=== PATIENT | male | born 1985 | race Caucasian/White ===

== ENCOUNTER 2021-06-15 11:03 | Emergency (ER) | payer SELFPAY ==
[2021-06-15 11:09] VITALS: BP 122/65; PULSE 80; RESP 15; TEMP 36.9; O2SAT 97; BMI 24.3
--- NOTE | 2021-06-15 11:26 | CT_ITS ---
WS: [id number] CT HEAD NONCONTRAST HISTORY: Evaluate for pathology. No additional history provided. TECHNIQUE: Contiguous axial imaging performed through the brain in 2.5 mm imaging. Bone and soft tiss ue windows. Sagittal and coronal reformats reviewed. All CT scans at [facility] use at least one of these dose optimization techniques: automated exposure control; mA and/or kV adjustment per pa tient size (includes targeted exams where dose is matched to clinical indication); or iterative recon struction. DLP: 834.13 mGy.cm COMPARISON: None available. No acute intracranial hemorrhage, midline shift or mass effect. No atrophy or prior infarcts or herniation. Ventricles: Normal size with no hydrocephalus. Paranasal sinuses: As visualized are clear. Mastoid air cells: Well pneumatized. Calvarium and scalp: Skull is intact with no soft tissue edema or swelling. CT/CT head wo con* [id number] IMPRESSION: Negative head CT.
--- NOTE | 2021-06-15 11:27 | ECG_ITS ---
[facility] Test Date: 2021-06-15 Pat Name: Ryan Reyez Department: Room: Gender: Male [employer] Operator: : 1985 Requested By: Liya Mei Order Number: [id number] Collado MD: Roxann Villanueva M.D. Measurements Intervals [place] Rate: 65 P: 68 TX: 156 QRS: 32 QRSD: 96 T: 38 QT: 397 QTc: 416 Interpretive Statements SINUS RHYTHM No previous ECG available for comparison Electronically Signed On 06-15-2021 13:22:03 SIDER by Roxann Villanueva M.D. [id number]
--- NOTE | 2021-06-15 11:34 | W.ED.GENADLT ---
HPI - General Adult General: Chief complaint: Headache Stated complaint: BLACKED OUT, HEADACHE Time Seen by Provider: 06/15/21 11:07 History of Present Illness: Patient is a 36-year-old male with a prior history of headaches currently incarcerated presenting to the emergency room with acute of headache x 3 days setting of nasal congestion, generalized weakness, silver taste in mouth, and body ache. Patient has had a headache is gradually gotten worse. It has not gotten better. Patient denies any fever or chills. Denies any cough, runny nose or sore throat. Patient has no abdominal complaints including diarrhea, melena hematochezia. Patient denies any nausea or vomiting. No other sick contacts around patient. Patient denies any chest pain, shortness of breath or palpitation. Onset: 3 days ago Duration:3 days Location:home Severity:moderate Associated symptoms: Reports malaise; Deny chest pain, dyspnea, nausea, rash, palpitations or vomiting Review of Systems Const: Reports: body aches, malaise and other (generalized weakness); Denies: fever(s) or chills Eyes: Denies: change in vision ENMT: Reports: other (nasal congestion); Denies: mouth pain Card: Denies: chest pain or palpitations Resp: Denies: dyspnea or non-productive cough GI: Denies: abdominal pain, nausea, vomiting or diarrhea : Denies: dysuria Musc: Denies: extremity pain Skin/Breast: Denies: rash or new lesions Neuro: Reports: other (+headache); Denies: weakness in extremities Psych: Reports: other (Normal mood) Dxeter/Lymph: Denies: easy bruising [facility] ED PFSH: Medical History Headache Social History Alcohol intake: former Substance/Drug Use: former Physical Exam Const: COMMON NORMALS: alert HENMT: COMMON NORMALS: atraumatic HEAD & SCALP: atraumatic MOUTH: moist mucous membranes not abnormal Eye: COMMON NORMALS: EOMs intact bilaterally and conjunctivae normal CONJUNCTIVA: Yes conjunctivae normal Neck/C-Spine: COMMON NORMALS: full ROM and supple OTHER: no nuchal rigidity Resp: COMMON NORMALS: normal respiratory effort and clear to auscultation bilaterally AUSCULTATION: clear to auscultation bilaterally Cardio: COMMON NORMALS: regular rate RATE: regular rate GI: COMMON NORMALS: Soft to palpation and non-tender PALPATION: Yes Soft to palpation Extremity: COMMON NORMALS: full ROM Neuro: SENSORIUM/ORIENTATION: Yes alert MOTOR EXAM: No Abnormal motor strength present and Other motor observations present (no focal motor deficits) OTHER: Mental status? Awake, alert, and oriented to self, year, month, location, and situation.? Following simple axial and appendicular commands.? Has appropriate fund of knowledge, comprehension, and insight.? Able to recall and understands pertinent aspects of medical history and current treatment status.? ? Language? Speech is fluent without word-finding difficulties.? Intact naming, expression, electrician control equipment, and repetition.? ? Cranial nerves? 2,3,4,6: PERRL, EOMI with no nystagmus. 5: Intact sensation to light touch, symmetric? 7: Smile symmetrical, no facial droop.? 8: Hearing grossly intact.? 9,10: Normal palate movement.? 11: Normal strength in trapezius bilaterally 12: Tongue protrudes midline.? ? Motor examination? Normal bulk & tone. Strength as follows (R/L): Delts (5/5), Biceps (5/5), Triceps (5/5), Wrist ext (5/5), hip flexors (5/5), plantarflexors (5/5), dorsiflexors (5/5). Sensation? Light Touch: Grossly intact and equal in upper and lower extremities bilaterally? Romberg: Negative.? Distal joint position sense intact ? Coordination? Xrocdl-hx-zewz-finger movements intact without dysmetria or past-pointing.? Rapid fingertaps: preserved amplitude without decriment.? No tremor, myoclonus or truncal ataxia.? ? Gait/stance? Steady, normal narrow base gait with appropriate arm swing and turning.? Tandem gait without hesitation or loss of balance. Psych: COMMON NORMALS: speech normal SPEECH: Yes normal speech MOOD & AFFECT: Yes euthymic mood Course Vital Signs: Vital signs: Vital Signs Temperature 98.4 F 06/15/21 11:09 Pulse Rate 80 06/15/21 11:09 Respiratory Rate 15 06/15/21 11:09 Blood Pressure 122/65 06/15/21 11:09 Pulse Oximetry 97 06/15/21 11:09 [facility] - General Adult Medical Decision Making Patient is a 36-year-old male with a prior history of headache presenting to emergency room bifrontal headache x3 days in the setting of nasal congestion metallic taste in mouth and generalized weakness diffusely. Patient on exam is afebrile, no nuchal rigidity. No petechiae. Patient is neurologically intact. Given that the patient is currently incarcerated, decision was made to order CT scan to evaluate for acute pathologies. Patient is negative for any mass or brain bleed or trauma. At the present time, I doubt that this is subarachnoid bleed given the fact the patient has not had worse headache of his life, headaches associate with other symptoms, has no family history of aneurysm. Medication, patient's headache significantly improved, pain patient reports that currently he does not have any headache. I have given patient follow up with our transplant case manager to be seen by our primary care clinic if there is persistent headache. Patient aware of a call from our transplant case manager to schedule for appointment(s) and verbalizes understanding of the importance of following up. Rx: Magnesium oxide, Tylenol, Reglan as needed for headache Disposition: Discharge. Patient counseled regarding diagnostic impression, treatment plan. Patient given ED strict return precautions to return for continuation, worsening, or development of new symptoms. Instructed to f/u w/ PCP regarding symptoms today. Patient verbalized understanding. Lab Data Radiology Impressions Head CT 06/15/21 11:26 IMPRESSION: Negative head CT. Imaging Data Other Imaging: Radiologist's impression: Launch?Image [facility] [address] [facility] [place] [address] CT Scan Report Signed Patient: Ryan Reyez Unit #: [id number] : 1985 Age/Sex: 36 / M ADM Date: 06/15/21 Loc: ER Room/Bed: Attending Dr: Ordering Provider/Ordering MD: Liya Mei MD Date of Service: 06/15/21 Procedure(s): CT head wo con* [id number] Accession Number(s): [id number] Report Number: [id number] WS: [id number] CT HEAD NONCONTRAST HISTORY: Evaluate for pathology. No additional history provided. TECHNIQUE: Contiguous axial imaging performed through the brain in 2.5 mm imaging. Bone and soft tissue windows. Sagittal and coronal reformats reviewed.? All CT scans at [facility] use at least one of these dose optimization techniques: automated exposure control; mA and/or kV adjustment per patient size (includes targeted exams where dose is matched to clinical indication); or iterative reconstruction. DLP: 834.13 mGy.cm COMPARISON: None available. No acute intracranial hemorrhage, midline shift or mass effect. No atrophy or prior infarcts or herniation. Ventricles:? Normal size with no hydrocephalus. Paranasal sinuses: As visualized are clear. Mastoid air cells: Well pneumatized. Calvarium and scalp: Skull is intact with no soft tissue edema or swelling. CT/CT head wo con* [id number] IMPRESSION: ? Negative head CT. ? Dictated By: Debbie Rodrigues DO Signed By: Debbie Rodrigues DO Signed Date/Time: 06/15/21 1224 DD/ 1221 Discharge Plan Discharge Patient Disposition: Home Clinical Impression: Headache, Generalized body aches, Congestion of nasal sinus Condition: Stable Prescriptions: New acetaminophen 500 mg tablet 500 mg PO Q6H PRN (Reason: pain) 5 Days Qty: 20 0RF prednisone 50 mg tablet 50 mg PO DAILY 3 Days 0RF magnesium oxide 500 mg capsule 500 mg PO DAILY PRN (Reason: headache) 10 Days Qty: 10 0RF Reglan 5 mg tablet 5 mg PO DAILY PRN (Reason: headache) 5 Days Qty: 5 0RF Discharge Orders: Discharge ED (Routine); Ordered 06/15/21 Ordered By: Liya Mei Discharge Diet: Advance as tolerated Discharge Activity: Increase activity as tolerated Patient Instructions: Acute Headache (ED), Weakness (Generalized) Activity Restrictions/Additional Instructions: Please come back to the emergency room you have any fever chills, worsening headache, focal weakness, nausea/vomiting, inability to perform daily activity, or any new concerning complaints. Coding Level of Care Code ED Sulfuric Acid Plant Supervisor for Alberto Fwd Exam Comprehensive
[2021-06-15] MEDS: magnesium sulfate premix 2 GM/50 ML PIGGYBACK IV (11:39)
[2021-06-15] MEDS: sodium chloride 0.9% 1,000 ML 999 ML IV (11:43)
[2021-06-15] MEDS: metoclopramide 5 mg/mL SDV 2 mL IVP (11:43)
[2021-06-15] MEDS: diphenhydrAMINE 50 mg/mL SDV 1mL IVP (11:44)
[2021-06-15] MEDS: acetaminophen 500 mg Tablet 1000 MG PO (11:54)
[2021-06-15 13:07] VITALS: BP 122/65; PULSE 98; RESP 16; O2SAT 99
[2021-06-15 15:20] LABS: Adenovirus Not Detected (NOT DETECT); Chlamydia Pneumoniae Not Detected (NOT DETECT); Coronavirus 229E,HKU1,NL63,OC4 Not Detected (NOT DETECT); Human Metapneumovirus Not Detected (NOT DETECT); Human Rhinovirus/Enterovirus Not Detected (NOT DETECT); Influenza A Not Detected (NOT DETECT); Influenza A H1 Not Detected (NOT DETECT); Influenza A H1-2009 Not Detected (NOT DETECT); Influenza A H3 Not Detected (NOT DETECT); Influenza B Not Detected (NOT DETECT); Mycoplasma Pneumoniae Not Detected (NOT DETECT); Parainfluenza Virus Type 1 Not Detected (NOT DETECT); Parainfluenza Virus Type 2 Not Detected (NOT DETECT); Parainfluenza Virus Type 3 Not Detected (NOT DETECT); Parainfluenza Virus Type 4 Not Detected (NOT DETECT); Respiratory Syncytial Virus A Not Detected (NOT DETECT); Respiratory Syncytial Virus B Not Detected (NOT DETECT); SARS-COV-2 Detected (NOT DETECT)
--- NOTE | 2021-06-15 17:16 | PC.NURSE ---
left voicemail for pt to return call for lab results (covid)
--- NOTE | 2021-06-16 09:42 | DCPLANNER ---
mechanical manager had message to speak with patient about getting a primary care physician. mechanical manager called phone number [phone], unable to speak with patient at this time, unable to leave a voicemail for patient.
== END 2021-06-15 13:10 | disposition home or self-care (01) ==
PROVIDERS: Emergency Provider Emergency Medicine
DX: U07.1 COVID-19 (principal); R51.9 Headache, unspecified
CPT/HCPCS: 70450; 87635; 93005; 96365; 96375; 99284; J1200; J2765; J3475; J7030